=== PATIENT | female | born 1955 | race Caucasian/White ===

== ENCOUNTER 2019-08-02 17:01 | Emergency (ER) | payer SELFPAY ==
[~2019-08-02] VITALS: Ht 165.1 cm; Wt 84.1 kg
[2019-08-02 17:07] VITALS: Ht 165.1 cm; Wt 84.1 kg
[2019-08-02] MEDS ORDERED: HYDROCODONE-A1 UDTA2 PO (20:23)
[2019-08-02] MEDS ORDERED: KEFLEX500 MG PO (20:23)
[2019-08-02 20:58] VITALS: BP 139/73
[2019-08-04 08:18] VITALS: Ht 165.1 cm; Wt 84.1 kg
== END 2019-08-02 20:58 | disposition home or self-care (01) ==
LOC: D.ER 17:01
DX: S66.822A Laceration of other specified muscles, fascia and tendons at wrist and hand level, left hand, initial encounter (principal); W45.8XXA Other foreign body or object entering through skin, initial encounter

== ENCOUNTER 2019-08-04 07:01 | Day surgery (SDC) | payer SELFPAY ==
[~2019-08-04] VITALS: Ht 165.1 cm; Wt 83.9 kg
[~2019-08-04 07:01] MED LIST: HYDROCODONE-A1 UDTA2 PO; KEFLEX500 MG PO
[2019-08-04 07:29] LABS: HEMATOCRIT 39.5 % (36.0-48.0); HEMOGLOBIN 13.5 g/dL (12-16); MCH 30.3 pg (26.0-34.0); MCHC 34.2 g/dL (31.0-37.0); MCV 88.8 fL (80.0-100.0); MEAN PLATELET VOLUME 10.2 fL (7.4-10.4); RBC 4.45 10x6/uL (4.00-5.40); RDW 13.6 % (11.5-14.5); WBC 4.9 10x3/uL (4.8-10.8)
[2019-08-04 08:18] VITALS: Ht 165.1 cm; Wt 83.9 kg
[2019-08-04] MEDS ORDERED: DILAUDID2 MG PO (09:31)
--- NOTE | 2019-08-04 11:20 | NUR ---
PATIENT AMBULATING AROUND ROOM WITHOUT DIZZINESS OR UNSTEADINESS. DISCHARGE INSTRUCTIONS REVIEWED WITH PATIETN AND SPOUSE. PIV DC'D WITH TIP INTACT. PATIENT DRESSING IN PERSONAL CLOTHING
--- NOTE | 2019-08-08 11:59 | OP ---
PATIENT NAME: AZ BEARD MEDICAL RECORD: [id number] LOCATION:[facility] ADMISSION DATE: SURGEON: CRISTOBAL BOSCH MD DATE OF OPERATION: 08/04/2019 PREOPERATIVE DIAGNOSIS: Left ring finger extensor mechanism laceration. POSTOPERATIVE DIAGNOSIS: Left ring finger extensor mechanism laceration. PROCEDURE: Extensor tendon repair, left ring finger. SURGEON: Cristobal Bosch MD GREIGE MENDER: Tammy Sanford. INTRAOPERATIVE COMPLICATIONS: None. SUMMARY OF PATHOLOGIC FINDINGS: The patient was found to have an amazingly enough very clean laceration through the extensor mechanism of the ring finger. One small superficial nerve was noted to be lacerated also. INDICATIONS: Ms. Beard is a 64-year-old female who was using a high pressure water hose and she was distracted and the high pressure water hose went to the dorsum of her hand causing two lacerations. She received the appropriate treatment in the Emergency Department and then was signed up for extensor tendon laceration repair today. OPERATIVE SUMMARY IN DETAIL: After obtaining the appropriate preoperative orthopedic surgery consent as well as anesthetic consultation, evaluation and clearance, the patient was brought to the operating room and placed on the operating table in supine position. After general laryngeal mask airway was administered, tourniquet was placed about the proximal aspect of the left upper extremity. Left upper extremity was then prepped and draped in routine sterile fashion. The arm was elevated and exsanguinated, tourniquet inflated to 250 mmHg. Attention was first turned to removal of the sutures that have been placed in the Emergency Department. Having completed this, irrigation and debridement was then followed by examination. The proximal of the 2 lacerations was then elongated on the radial aspect for better evaluation of the retracted extensor communis of the ring finger. This was eventually found, tagged, and then attention was then turned more proximally. The second laceration had been opened, was allowed for identification of the distal aspect of the extensor for the ring finger, both having been identified. 4-0 Ethibond was then utilized for Andres style sutures both at the proximal tendon laceration of the distal tendon laceration. These were tied intratendinously to avoid the knots outside the tendon itself. This resulted in excellent reapproximation of the tendon. At this point, 6-0 Prolene was then used circumferentially about the tendon for reapproximation as best as possible for the peritenon and the edges of the tendon. This resulted in a very smooth fusiform tendon. Having completed this, gentle passive range of motion was utilized. An exploration of the long finger extensor tendon showed that it was completely intact. There was a small laceration of the juncturae tendinae. This was not addressed as it was a mid half laceration of the juncturae tendinae. Having completed this, wound was irrigated and closed by Tammy Sanford with a 4-0 Prolene in routine simple interrupted fashion. The area was locally infiltrated with 0.25% Marcaine plain. Sterile dressings were applied. Tourniquet was deflated and all of her OPERATIVE REPORT [id number] AZ BEARD splint was applied and incorporated the ulnar 3 digits including the long finger, ring finger as well as the small finger. The patient was then awakened and taken to the recovery room in stable condition. All final needle and sponge counts were correct. TRANSINT:[id number] Voice Confirmation ID: [id number] DOCUMENT ID: [id number] HIRO SAENZ, CRISTOBAL AMAYA at 1159 CC: [id number] DICTATION DATE: 08/04/19 1646 PHP PROGRAMMER: 08/05/[address] [facility] 08/04/19 [id number] [place] [address]
== END 2019-08-04 11:30 | disposition home or self-care (01) ==
LOC: D.OPS 07:01 → D.PAN 08:45 → D.OPS 11:30 → D.PAN 11:45 → D.OPS 11:45
PROVIDERS: Anesthesiology; ATTEND Orthopaedic Surgery
DX: S66.325A Laceration of extensor muscle, fascia and tendon of left ring finger at wrist and hand level, initial encounter (principal); W45.8XXA Other foreign body or object entering through skin, initial encounter